=== PATIENT | female | born 1990 | race Caucasian/White ===

== ENCOUNTER → 2020-12-11 | Outpatient (CLI) | payer BC ==
--- NOTE | 2020-12-12 11:30 | SLEEP ---
DATE OF STUDY: 12/12/2020 HOME SLEEP STUDY REFERRING PHYSICIAN: Michael Paniagua MD The patient is a 30-year-old who weighs 234 pounds with a BMI of 41. The patient underwent home sleep study performed at [facility]. Total recording time was 294 minutes. During the night study, the patient had 12 obstructive apneas, 48 mixed apneas, 8 central apneas and 7 hypopneas. The patient's AHI was 18.8 per hour. Nocturnal oximetry study revealed an average oxygen saturation 94% with lowest of 82%. A 4.6 minutes were spent with oxygen saturation less than 90%. Mean heart rate 55 beats per minute. IMPRESSION: 1. Moderate obstructive sleep apnea at an AHI of 18.8 per hour. 2. Mild nocturnal hypoxia secondary to obstructive sleep apnea. RECOMMENDATIONS: 1. The patient will benefit from CPAP titration study. This can be done as an in-lab versus home auto CPAP. 2. Once the patient is optimally treated with CPAP, then follow up in 4-6 weeks to assess compliance and to document clinical improvement. 3. Weight loss is advised. 4. Avoid [employer] depressants. 5. Cautioned regarding driving until symptoms of sleep apnea resolve with CPAP. SILVANO DR: Audie TID: [id number]
== END ==
LOC: RT 08:16
PROVIDERS: ATTEND Internal Medicine Pulmonary Disease
DX: G47.33 Obstructive sleep apnea (adult) (pediatric) (principal); R09.02 Hypoxemia
CPT/HCPCS: G0399